=== PATIENT | female | born 1955 | race Caucasian/White ===

== ENCOUNTER → 2016-07-06 | Outpatient (CLI) | payer OTHER ==
[~2016-07-06] MED LIST: CAL-500T PO; OXYC1TAB63 PO; VITA10003 PO; VITACAP7 PO
[2016-07-06 15:25] LABS: AUTOMATED NEUTROPHIL # 4.6 TH/MM3 (1.8-7.7); BASOPHIL % 0.1 % (0.0-2.0); HEMATOCRIT 38.7 % (35.0-46.0); HEMO FLAGS DIFF FINAL; LYMPH % 18.2 % (9.0-44.0); LYMPHOCYTE # 1.2 TH/MM3 (1.0-4.8); MEAN CELL VOLUME 92.3 FL (80.0-100.0); MEAN CORPUSCULAR HEMOGLOBIN 31.7 PG (27.0-34.0); MEAN CORPUSCULAR HGB CONC 34.4 % (32.0-36.0); MONO % 10.3 % (0.0-8.0); NEUT % 71.4 % (16.0-70.0); PLATELET COUNT 215 TH/MM3 (150-450); RED BLOOD COUNT 4.19 MIL/MM3 (4.00-5.30); RED CELL DISTRIBUTION WIDTH 12.5 % (11.6-17.2); WHITE BLOOD COUNT 6.4 TH/MM3 (4.0-11.0)
[2016-07-06 15:42] LABS: APTT (PATIENT) 26.1 SEC (24.3-30.1); PROTHROMBIN TIME - PATIENT 10.7 SEC (9.8-11.6)
[2016-07-06 15:51] LABS: ALT (GPT) 42 U/L (10-53); ANION GAP 4 MEQ/L (5-15); AST (GOT) 34 U/L (15-37); BICARBONATE 35.2 MEQ/L (21.0-32.0); BLOOD UREA NITROGEN 20 MG/DL (7-18); CHLORIDE 101 MEQ/L (98-107); GLOMERULAR FILTRATION RATE 89 ML/MIN (>89); GLUCOSE,FASTING 91 MG/DL (74-99); POTASSIUM 4.1 MEQ/L (3.5-5.1); SODIUM (NA) 140 MEQ/L (136-145)
[2016-07-06 15:53] LABS: ALKALINE PHOSPHATASE 79 U/L (45-117); TOTAL BILIRUBIN ADULT 0.4 MG/DL (0.2-1.0)
--- NOTE | 2016-07-06 17:10 | RADRPT ---
EXAM DATE/TIME: 07/06/2016 16:16 [place] COMPARISON: No previous studies available for comparison. INDICATIONS : Evaluate for pneumonia, pneumothorax, or communicable disease. Pre-op hysterectomy MEDICAL HISTORY : None. SURGICAL HISTORY : None. ENCOUNTER: Initial ACUITY: 1 day PAIN SCORE: 0/10 LOCATION: Bilateral chest FINDINGS: PA and lateral views of the chest demonstrate the lungs to be symmetrically, but hyper aerated withou t evidence of mass, infiltrate or effusion. The cardiomediastinal contours are unremarkable. Osseou s structures are intact with a scoliosis of the lumbar spine. CONCLUSION: Hyperinflated with no acute cardiopulmonary process. Fito Morales MD on July 06, 2016 at 17:07 Board Certified Radiologist. This report was verified electronically.
--- NOTE | 2016-07-09 14:07 | EKG ---
Date Performed: 07/06/2016 Time Performed: 15:02:30 PTAGE: 60 years EKG: Sinus rhythm NORMAL ECG NO PREVIOUS TRACING DOCTOR: Gabriel Bell Interpretating Date/Time 07/09/2016 14:02:25
--- NOTE | 2016-07-10 07:27 | EKG ---
Date Performed: 07/06/2016 Time Performed: 15:02:30 PTAGE: 60 years EKG: Sinus rhythm NORMAL ECG NO PREVIOUS TRACING DOCTOR: Gabriel Bell Interpretating Date/Time 07/10/2016 07:26:04
== END ==
LOC: CPRE 14:41
PROVIDERS: ATTEND Obstetrics & Gynecology Gynecologic Oncology
DX: Z01.810 Encounter for preprocedural cardiovascular examination (principal); Z01.812 Encounter for preprocedural laboratory examination; N95.0 Postmenopausal bleeding; N85.00 Endometrial hyperplasia, unspecified
CPT/HCPCS: 36415; 71020; 80053; 85025; 85610; 85730; 93005

== ENCOUNTER 2016-07-19 05:30 | Observation (INO) | payer OTHER ==
[~2016-07-19] VITALS: Ht 165.1 cm; Wt 41.8 kg
[~2016-07-19 05:30] MED LIST changes: -OXYC1TAB63 PO
[2016-07-19 06:06] VITALS: BP 120/58; PULSE 58; RESP 20; TEMP 97.7; O2SAT 100
[2016-07-19] MEDS ORDERED: SODIUM CHLORIDE 0.9% INJ 100 ML ONE (06:07)
[2016-07-19] MEDS ORDERED: HEPARIN SODIUM - SQ 10,000 UNITS/ML VIAL ONE (06:07)
[2016-07-19] MEDS ORDERED: LACTATED RINGER'S 1000 ML INJ 1,000 ML ONE (06:07)
[2016-07-19] MEDS ORDERED: ceFAZolin INJ 1,000 MG VIAL ONE (06:07)
[2016-07-19] MEDS ORDERED: HEPARIN SODIUM - SQ 10,000 UNITS/ML VIAL SQ SCH (06:15)
[2016-07-19] MEDS ORDERED: INSULIN HUMAN REGULAR 1,000 UNITS/10 ML VIAL SQ PRN (06:15)
[2016-07-19] MEDS ORDERED: SODIUM CHLORID 0.9% 500 ML IV PRN (06:15)
[2016-07-19] MEDS ORDERED: POVIDONE IODINE 5% (ANTISEPSIS KIT) 4 APPLICATIONS EACH NARE PRN (06:15)
[2016-07-19] MEDS ORDERED: ceFAZolin 1,000 MG/NS 100 ML IV SCH ×2 (06:15)
[2016-07-19] MEDS ORDERED: CHLORHEXIDINE GLUCONATE 2 % 1 PACK (2 CLOTHS) TOPICAL PRN (06:15)
[2016-07-19] MEDS ORDERED: METOPROLOL TARTRATE 25 MG TAB PO PRN (06:15)
[2016-07-19] MEDS ORDERED: LACTATED RINGER'S 1000 ML IV PRN (06:15)
[2016-07-19] MEDS ORDERED: DEXAMETHASONE SOD PHOS 4 MG/ML VIAL ONE (07:00)
[2016-07-19] MEDS ORDERED: MIDAZOLAM HCL 2 MG/2 ML VIAL ONE (07:00)
[2016-07-19] MEDS ORDERED: APREPITANT 40 MG CAP ONE (07:00)
[2016-07-19] MEDS ORDERED: ACETAMINOPHEN 1000 MG/100 ML VIAL IV ONE (07:00)
[2016-07-19] MEDS ORDERED: FAMOTIDINE 20 MG/2 ML VIAL ONE (07:00)
[2016-07-19] MEDS ORDERED: LIDOCAINE 1%/EPINEPHrine 1:100,000 SOLN 20 ML VIAL ONE (07:25)
[2016-07-19] MEDS ORDERED: ceFAZolin INJ 1,000 MG VIAL IV ONE (10:12)
[2016-07-19] MEDS ORDERED: SUGAMMADEX SODIUM 200 MG/2 ML VIAL IV PUSH ONE ×2 (10:22)
[2016-07-19] MEDS ORDERED: oxyCODONE/ACETAMINOPHEN 5 MG/325 MG TAB PO PRN ×2 (11:00)
[2016-07-19] MEDS ORDERED: ONDANSETRON HCL 4 MG/2 ML VIAL IVP PRN (11:00)
[2016-07-19] MEDS ORDERED: diphenhydrAMINE HCL 25 MG CAP PO PRN (11:00)
[2016-07-19] MEDS ORDERED: SODIUM CHLORIDE 0.9% FLUSH 10 ML FLUSH IV FLUSH PRN (11:00)
[2016-07-19] MEDS ORDERED: LORazepam 0.5 MG TAB PO PRN (11:00)
[2016-07-19] MEDS ORDERED: HYDROmorphone HCL PF 1 MG/ML VIAL IVP PRN (11:00)
[2016-07-19] MEDS ORDERED: fentaNYL CITRATE 250 MCG/5 ML AMP ONE (11:03)
[2016-07-19] MEDS ORDERED: DO NOT ADM ANY ANTICOAGULANT DRUGS PRN (11:30)
[2016-07-19] MEDS ORDERED: *MEPERIDINE 25 MG INJ VIAL PERIprocedural Use ONLY ONE (11:38)
[2016-07-19] MEDS: D5-1/2 NS + KCL 20 MEQ INJ 1,000 ML IV SCH ×2 (11:42→22:08)
[2016-07-19] MEDS ORDERED: PROPOFOL 200 MG/20 ML AMP IV ONE (12:00)
[2016-07-19] MEDS ORDERED: LACTATED RINGER'S 1000 ML INJ 1,000 ML IV ONE (12:00)
[2016-07-19] MEDS: KETOROLAC TROMETHAMINE 30 MG/ML (IVP) VIAL IVP SCH ×3 (12:00→23:26)
[2016-07-19] MEDS ORDERED: ONDANSETRON HCL 4 MG/2 ML VIAL IV PUSH ONE (12:00)
--- NOTE | 2016-07-19 15:10 | PD.ONC.PN ---
Subjective Subjective Remarks post op note: pt in PACU with at bedside awaiting bed on 7east no complaints of pain a little nausea no vomiting RN states no vaginal bleeding Objective Data Date Time Temp Pulse Resp B/P Pulse Ox O2 Delivery O2 Flow Rate FiO2 07/19/16 14:49 98.0 68 17 107/64 96 Room Air 07/19/16 14:00 70 17 113/66 96 Room Air 07/19/16 13:15 74 17 121/86 97 Room Air 07/19/16 12:45 74 17 132/76 99 Room Air 07/19/16 12:15 71 17 124/72 99 Nasal Cannula 2 07/19/16 11:45 71 14 124/72 99 Nasal Cannula 2 07/19/16 11:30 72 14 121/72 100 Nasal Cannula 3 07/19/16 11:15 81 14 136/72 100 Nasal Cannula 3 07/19/16 11:00 81 15 120/67 100 Nasal Cannula 3 07/19/16 10:52 97.8 78 15 126/70 100 Nasal Cannula 3 07/19/16 06:06 97.7 58 20 120/58 100 07/19/16 07/19/16 07/19/16 07:00 15:00 23:00 Intake Total 1800 ml Output Total 825 ml Balance 975 ml Laboratory Results Laboratory Tests Test 07/19/16 06:00 Blood Type A POSITIVE Antibody Screen NEGATIVE Blood Bank Comment Administered Medications Medications (Trade) Dose Ordered Sig/Kiet Route PRN Reason Start Time Stop Time Status Last Admin Dose Admin Potassium Chloride/Dextrose/ Sod Cl (D5-1/2 NS + KCl 20 Meq Inj) 1,000 ml @ 100 mls/hr Q10H IV 07/19/16 10:48 07/19/16 11:42 Ketorolac Tromethamine (Toradol Inj) 30 mg Q6HR IVP 07/19/16 12:00 07/20/16 06:01 07/19/16 12:00 Objective Remarks GENERAL: Well-nourished, well-developed patient. SKIN: Warm and dry. HEAD: Normocephalic. EYES: No scleral icterus. No injection or drainage. CARDIOVASCULAR: Regular rate and rhythm without murmurs. RESPIRATORY: Breath sounds equal bilaterally. No accessory muscle use. GASTROINTESTINAL: Abdomen soft, non-tender, nondistended. with SS C/D/I EXTREMITIES: TEDs and SCDs MUSCULOSKELETAL: Adequate muscle tone. NEUROLOGICAL: No obvious focal deficit. Awake, alert, and oriented x3. PSYCHIATRIC: Appropriate mood and affect; insight and judgment normal. Assessment/Plan Problem List: (1) Thickened endometrium Status: Resolved Plan: s/p RA joceline dhillon BSO (2) Post-operative state Status: Acute Plan: post op orders in chart D/C hernandez in AM ADAT OOB to chair IS to bedside pain meds per EMR anticipate D/C in AM awaiting bed on RN to give antiemetic for nausea Latrell HwangP Jul 19, 2016 15:10
[2016-07-19 20:00] VITALS: BP 104/58; PULSE 60; RESP 18; TEMP 97.7; O2SAT 97
[2016-07-19] MEDS ORDERED: SODIUM CHLORIDE 0.9% FLUSH 10 ML FLUSH IV FLUSH SCH (21:00)
[2016-07-19 21:32] VITALS: O2SAT 97
[2016-07-20] VITALS: BP 93/51; PULSE 60; RESP 17; TEMP 97.7; O2SAT 99
[2016-07-20 04:00] VITALS: BP 96/55; PULSE 58; RESP 18; TEMP 97.2; O2SAT 98
[2016-07-20] MEDS: KETOROLAC TROMETHAMINE 30 MG/ML (IVP) VIAL IVP SCH (06:03)
[2016-07-20] MEDS ORDERED: OXYC1TAB63 PO (07:16)
[2016-07-20 07:25] LABS: AUTOMATED NEUTROPHIL # 4.3 TH/MM3 (1.8-7.7); BASOPHIL % 0.1 % (0.0-2.0); HEMO FLAGS DIFF FINAL; LYMPH % 19.6 % (9.0-44.0); LYMPHOCYTE # 1.3 TH/MM3 (1.0-4.8); MEAN CELL VOLUME 92.8 FL (80.0-100.0); MEAN CORPUSCULAR HEMOGLOBIN 31.9 PG (27.0-34.0); MEAN CORPUSCULAR HGB CONC 34.4 % (32.0-36.0); MONO % 13.4 % (0.0-8.0); NEUT % 66.9 % (16.0-70.0); PLATELET COUNT 165 TH/MM3 (150-450); RED BLOOD COUNT 3.66 MIL/MM3 (4.00-5.30); RED CELL DISTRIBUTION WIDTH 12.6 % (11.6-17.2); WHITE BLOOD COUNT 6.4 TH/MM3 (4.0-11.0)
[2016-07-20 07:59] LABS: BICARBONATE 28.9 MEQ/L (21.0-32.0)
[2016-07-20 08:00] VITALS: BP 150/61; PULSE 58; RESP 18; TEMP 96.4; O2SAT 100
[2016-07-20 10:07] VITALS: O2SAT 96
--- NOTE | 2016-07-24 17:36 | MP ---
cc: CELIA BENITES KELLY L. MD SCHNEIDER, JULIE D. MD DATE OF SURGERY: 07/19/2016 PREOPERATIVE DIAGNOSIS: Postmenopausal bleeding, thickened endometrial stripe, cervical stenosis. POSTOPERATIVE DIAGNOSIS 1. Postmenopausal bleeding, thickened endometrial stripe, cervical stenosis. 2. Endometriosis. 3. Adenomyosis. 4. Leiomyomas. 5. Pelvic adhesions. PROCEDURE Robotic-assisted laparoscopic hysterectomy, bilateral salpingo-oophorectomy, lysis of adhesions. SURGEON Haley Zuleta MD. 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 ANESTHESIA General endotracheal anesthesia ESTIMATED BLOOD LOSS 100 cc IV FLUIDS 1700 cc. URINE OUTPUT 325 cc HISTORY A 61-year-old female postmenopausal bleeding, endometrial stripe thickened to 18 millimeters, attempted endometrial sampling showed scant tissue, clinical findings that of cervical stenosis. She was counseled regarding options, was in favor of definitive hysterectomy and presents for that endeavor. She is seen again in the preop holding area where the findings were reviewed. Questions were answered. The plan was discussed and she is in favor of moving forward with surgery. FINDINGS The uterus was symmetrically enlarged. The cavity only sounded to approximately 6 cm, but there was some enlargement due to leiomyoma, adenomyosis. Tubes and ovaries grossly appeared normal, both tubes and ovaries were adherent to the pelvic side wall. There were adhesions. Appendix was adherent in the right cul-de-sac, although the appendix itself grossly appeared normal. There was thickening of the peritoneum and overall changes suggestive of probable endometriosis. There were no peritoneal implants, no adenopathy. The uterus once removed showed benign findings, again consistent with adenomyosis, leiomyomas. No evidence of malignancy. DESCRIPTION OF PROCEDURE: The patient taken to the operating room placed in dorsal lithotomy position after general endotracheal anesthesia was administered, time-out was undertaken. The patient was identified by sight, recognition and hospital ID bracelet and the proposed procedure was reviewed and confirmed. She was carefully positioned and padded Smith stirrups. Her arms were padded and secured to the sides. She was further secured to the operating table with egg crate padding and tape in across chest over the shoulder fashion. All sites noted be properly aligned with no malalignments or pressure points. She was prepped in sterile fashion, draped below the waist, placed in high lithotomy position, cervix was grasped. A lacrimal probe was used to try to break up scar tissue, identify the endocervical canal now with careful graduated dilation allowed entry into the endometrial cavity where the cavity sounded to 6 cm and a small VCare manipulator was inserted and secured in the usual fashion. Jean catheter placed in the bladder. She was returned to low lithotomy position, change of sterile gloves was undertaken. We completed draping in anticipation of laparoscopy. After confirming that an orogastric airway was in the stomach on suction 5 mm cannula was placed in the left upper quadrant under direct laparoscopic visualization with elevation of the abdominal wall and atraumatic entry was confirmed. Carbon dioxide gas was insufflated. 12 mm cannula placed in midline above the umbilicus, 8 mm cannula was in the right upper abdomen, left lateral abdomen. The original 5 exchanged for an 8-mm cannula. She was placed in steep Trendelenburg position. Peritoneal washings were obtained for cytology. The anatomy was explored, the findings as described above. Three Ray-Libertad sponges were placed across the root of the small bowel mesentery. The robotic system brought into the operative field, attached in the usual fashion. Monopolar scissors, fenestrated bipolar forceps and Prograsp manipulators placed in arms number 1, 2 and 3 respectively, and I took my place at the surgeon's console. Lysis of adhesions was carried out to mobilize the appendix, grossly appeared normal, to mobilize the right tube and ovary free from their attachments to the cul-de-sac, to mobilize the left tube and ovary free their attachments of the cul-de-sac to mobilize the left colon which was adherent over the left pelvic sidewall. Right round ligament doubly cauterized transected. The anterior and posterior leafs of the broad ligament were opened. The right ureter was identified. The right infundibulopelvic ligament was isolated, cauterized to the level of the pelvic brim and transected. Posterior peritoneum opened along the right side of the uterus and cervix. The right vesicouterine peritoneum dissected off the lower uterine segment and cervix. The right uterine vessels were skeletonized, cauterized and transected as were the cardinal, paracervical and uterosacral ligaments. Attention was directed toward the left side. The left round ligament cauterized, transected. Anterior and posterior leafs of the broad ligament were further developed. The left ureter was identified. The left infundibulopelvic ligament was isolated. The intervening peritoneum was opened and the ureter was dissected posteriorly as the gonadal vessels and adnexa were isolated ventrally. The gonadal vessels were isolated, cauterized and transected at the level of the pelvic brim. Posterior peritoneum opened along the left side of the uterus and cervix. The left vesicouterine peritoneum dissected off the lower uterine segment and cervix. The left uterine vessels were skeletonized, cauterized and transected as were the cardinal, paracervical and uterosacral ligaments. Colpotomy was performed. Specimen was removed including uterus, cervix, tubes and ovaries. Instruments one and three exchanged for needle drivers as a 0 Vicryl suture was introduced. A pneumo-occluder balloon was placed in the vagina to maintain pneumoperitoneum. The vaginal cuff was closed starting at the left corner, full-thickness closure, plus the edge of the uterosacral ligament, posterior peritoneum tied via instrument tie. The closure was held on countertraction as a running continuous closure, full-thickness carried across the vaginal cuff to the contralateral corner where it was similarly fixed, tied. The needle was cut and removed. Pelvis thoroughly irrigated. Small bleeders rendered hemostatic with bipolar cautery. Pathology came back benign. It was felt that all reasonable surgical objectives had been completed. The robotic instruments removed. The robotic system was disengaged from the operative field. I reentered the bedside under sterile condition. Each of the three Ray-Libertad sponges were now removed laparoscopically, removed individually and inspected and noted to be removed in their entirety. Visual inspection confirmed there were no remaining foreign objects in the peritoneal cavity and pulmonary counts were correct. 0 Vicryl suture was used to close the 12-mm fascial defect with a needle pass apparatus tied securely. The fascia was airtight and hemostatic. The remaining cannulas were withdrawn. Carbon dioxide gas was removed. 3-0 Vicryl subcutaneous, 3-0 Vicryl subcuticular and Steri-Strips used to close these incisions. She was returned to dorsal lithotomy position. Inspection then confirmed the vaginal cuff was well supported. Superficial irritation oozing on the vaginal mucosa, one gram Anayeli hemostatic powder was used on the vaginal apex with complete hemostasis. No remaining foreign objects in the vagina. Final counts were correct. She was returned to dorsal supine position and was pending reversal of anesthesia when I left the operating room to precede her to the Post Anesthesia Care Unit. MD TRESA Amador/SAMARA /7:28 AM /5:10 PM
--- NOTE | 2016-07-24 22:12 | MD ---
cc: CELIA BENITES KELLY L. MD SCHNEIDER, JULIE D. MD ADMISSION DATE: 07/19/2016 DISCHARGE DATE: 07/20/2016 PROCEDURE 07/19/2016 robotic-assisted laparoscopic hysterectomy, bilateral salpingo-oophorectomy, lysis of adhesions. DIAGNOSIS Thickened endometrial stripe, postmenopausal bleeding, cervical stenosis. HOSPITAL COURSE She did well during the first 24 hours after surgery. Remained afebrile, pulse 58-68, respirations 17-18, blood pressure 93-118 over 51-59. O2 saturations greater than or equal to 97%. Ins and outs 3030/2275. Labs pending at the time of this dictation. PHYSICAL EXAMINATION GENERAL: Alert and oriented times three. No acute distress. LUNGS: Clear except for mild basilar rales. CARDIOVASCULAR: Regular rate and rhythm. ABDOMEN: Soft. Incisions clean and dry. INCOME TAX PREPARER: No bleeding. EXTREMITIES: Nontender. ASSESSMENT Postop day #1 operative findings. Benign pathology discussed. Activities restrictions reviewed. Questions were answered. She expressed good understanding. She is tolerating oral intake. She has been out of bed. Jean catheter is removed pending voiding. All in all doing well. PLAN Anticipate discharge to home today. She is to resume her prior [id number] medications. She will have a prescription for Percocet. She is contact our office to schedule follow up in approximately 2 weeks and our office number is made available should she have any questions or problems between now and the time of scheduled followup. MD TRESA Amador/JEANNETTE /7:20 AM /10:00 PM
== END 2016-07-20 10:44 | disposition home or self-care (01) ==
LOC: HSDC 05:30 → HSDI 10:52 → HOCA 19:40
PROVIDERS: ADMIT Obstetrics & Gynecology Gynecologic Oncology; ATTEND Obstetrics & Gynecology Gynecologic Oncology
DX: D25.9 Leiomyoma of uterus, unspecified (principal); N80.0 Endometriosis of uterus; N88.8 Other specified noninflammatory disorders of cervix uteri; N73.6 Female pelvic peritoneal adhesions (postinfective)
CPT/HCPCS: 00840; 58571; 80048; 85025; 86850; 86900; 86901; 88307; 88331; 88332; 94150; G0378; J0131; J0690; J1100; J1885; J2175; J2250; J2405; J3010; J3480; J7120; J8501; 88112; J1644